=== PATIENT | female | born 1975 | race Caucasian/White ===

== ENCOUNTER 2017-08-28 15:38 | Emergency (ER) | payer OTHER ==
[~2017-08-28] VITALS: Ht 157.5 cm; Wt 94.1 kg
[~2017-08-28 15:38] MED LIST: FLEXERIL10 MG PO; NAPROSYN500 MG PO
[2017-08-28 16:12] LABS: HEMATOCRIT 38.8 % (36.0-46.0); MCH 28.4 PG (29.0-34.0); MCHC 33.2 G/DL (30.0-36.0); MCV 85.3 FL (83-99); MEAN PLAT.VOLUME 9.4 uM^3 (9.5-12.4); PLATELET COUNT 210 K/uL (156-360); RBC DIS.WIDTH-CV 12.5 % (11.8-14.6); RBC DIS.WIDTH-SD 38.8 % (39-53); RED BLOOD COUNT 4.55 M/uL (3.80-5.20); WHITE BLOOD COUNT 7.5 K/uL (4.1-10.2)
[2017-08-28 16:21] LABS: CHLORIDE 105 mEq/L (99-109); POTASSIUM 4.6 mEq/L (3.7-5.4); SODIUM 139 mEq/L (136-147)
[2017-08-28 16:24] LABS: GLUCOSE 96 mg/dL (70-99)
[2017-08-28 16:25] LABS: ANION GAP 10 MEQ/L (2-14)
[2017-08-28 16:26] LABS: TOTAL BILIRUBIN 0.3 mg/dL (0.0-1.0)
[2017-08-28 16:27] LABS: ALKALINE PHOSPHATASE 66 IU/L (3-129); GFR ESTIMATE (CALCULATED) > 59 mL/min/
[2017-08-28 16:28] LABS: UREA NITROGEN (BUN) 9 mg/dL (9-23)
[2017-08-28 16:33] LABS: ADD MIUA? YES; BILIRUBIN NEGATIVE; BLOOD SMALL; COLOR YELLOW ((YELLOW)); GLUCOSE (STRIP) NEGATIVE; KETONES NEGATIVE; LEUKOCYTES NEGATIVE; NITRITE NEGATIVE; PROTEIN (STRIP) NEGATIVE; SPECIFIC GRAVITY 1.012 (1.000-1.030); UROBILINOGEN 0.2 MG/DL (0.2-1.0)
[2017-08-28 16:36] LABS: QUANTITATIVE HCG < 4.0 MIU/ML
[2017-08-28 16:36] LABS: BACTERIA NONE SEEN /HPF; EPITHELIAL CELLS RARE /HPF; MUCUS TRACE /LPF; RED BLOOD CELLS 0-5 /HPF (0-5); UCUL ADDED? NO; WHITE BLOOD CELLS 0-5 /HPF (0-5)
[2017-08-28] MEDS ORDERED: NORCO 5/3251 TABLET PO (20:22)
[2017-08-28] MEDS ORDERED: MOTRIN600 MG PO (20:22)
[2017-08-28 20:58] VITALS: BP 145/65
== END 2017-08-28 20:59 | disposition home or self-care (01) ==
LOC: EME 15:38
PROVIDERS: Physician Assistant
DX: N83.209 Unspecified ovarian cyst, unspecified side (principal); D25.9 Leiomyoma of uterus, unspecified; Z86.718 Personal history of other venous thrombosis and embolism
CPT/HCPCS: 74176; 76856; 80053; 81003; 84702; 85027; 99281; 99284

== ENCOUNTER 2017-10-04 10:00 | Inpatient (IN) | payer OTHER ==
[~2017-10-04] VITALS: Ht 162.6 cm; Wt 95.3 kg
[~2017-10-04 10:00] MED LIST changes: +ELIQUIS5 MG PO; +LORCET 5-325 M1 EACH PO; +MOTRIN600 MG PO; +NORCO 5/3251 TABLET PO; +ONE DAILY FOR1 EAC1 PO; +PRILOSEC10 MG PO
[2017-10-04 10:23] VITALS: BP 132/62
[2017-10-04 14:54] LABS: INTER. NORMALIZED RATIO 1.2; PROTHROMBIN TIME 13.5 SEC (10.2-12.9)
[2017-10-04 14:57] LABS: PTT 40.1 SEC (25-37)
[2017-10-04] MEDS ORDERED: MOTRIN600 MG PO (18:56)
[2017-10-04] MEDS ORDERED: ENDOCET 5-3251 EACH PO (18:56)
[2017-10-04 19:34] LABS: HEMATOCRIT 31.4 % (36.0-46.0); MCV 86.5 FL (83-99)
[2017-10-04 20:14] VITALS: BP 117/61
[2017-10-04 23:35] VITALS: BP 112/59
[2017-10-05 03:28] VITALS: BP 136/63
[2017-10-05 06:35] LABS: EOSINOPHIL (%) 0.1 % (0-5); HEMATOCRIT 28.2 % (36.0-46.0); IMMATURE GRANULOCYTE (%) 0.4 % (0.0-0.7); INSTRUMENT ABS NEUTROPHIL CT 8.1 K/uL; MCH 28.3 PG (29.0-34.0); MCHC 32.6 G/DL (30.0-36.0); MCV 86.8 FL (83-99); MEAN PLAT.VOLUME 10.2 uM^3 (9.5-12.4); MONOCYTE (%) 8.3 % (3-12); MONOCYTE COUNT 0.9 K/uL (0-0.8); NEUTROPHIL (%) 73.3 % (45-76); NEUTROPHIL COUNT 8.1 K/uL (1.8-6.4); PLATELET COUNT 217 K/uL (156-360); RBC DIS.WIDTH-CV 12.7 % (11.8-14.6); RBC DIS.WIDTH-SD 40.5 % (39-53)
[2017-10-05 06:43] LABS: RED BLOOD COUNT 3.25 M/uL (3.80-5.20)
[2017-10-05 06:59] LABS: ANION GAP 6 MEQ/L (2-14); CHLORIDE 108 MEQ/L (99-109); GFR ESTIMATE (CALCULATED) > 59 mL/min/; GLUCOSE 98 mg/dL (70-99); POTASSIUM 4.4 MEQ/L (3.7-5.4); SAMPLE HEMOLYSIS CHECK 0; SAMPLE ICTERIC CHECK 0; SAMPLE LIPEMIA CHECK 0; SODIUM 138 MEQ/L (136-147); UREA NITROGEN (BUN) 9 mg/dL (9-23)
[2017-10-05 07:20] VITALS: BP 122/57
[2017-10-05 11:00] VITALS: BP 120/56
[2017-10-05 15:15] VITALS: BP 143/60
[2017-10-05 19:42] VITALS: BP 109/63
[2017-10-06 00:27] VITALS: BP 135/67
[2017-10-06 03:44] VITALS: BP 110/52
[2017-10-06 07:48] VITALS: BP 112/58
[2017-10-06 09:12] LABS: EOSINOPHIL (%) 0.5 % (0-5); HEMATOCRIT 26.2 % (36.0-46.0); IMMATURE GRANULOCYTE (%) 0.3 % (0.0-0.7); INSTRUMENT ABS NEUTROPHIL CT 4.9 K/uL; LYMPHOCYTE COUNT 1.6 K/uL (1.0-2.8); MCH 28.6 PG (29.0-34.0); MCHC 32.4 G/DL (30.0-36.0); MCV 88.2 FL (83-99); MEAN PLAT.VOLUME 9.8 uM^3 (9.5-12.4); MONOCYTE (%) 10.2 % (3-12); MONOCYTE COUNT 0.8 K/uL (0-0.8); NEUTROPHIL (%) 66.8 % (45-76); NEUTROPHIL COUNT 4.9 K/uL (1.8-6.4); PLATELET COUNT 184 K/uL (156-360); RBC DIS.WIDTH-SD 41.6 % (39-53); RED BLOOD COUNT 2.97 M/uL (3.80-5.20); WHITE BLOOD COUNT 7.3 K/uL (4.1-10.2)
[2017-10-06 09:33] LABS: ALKALINE PHOSPHATASE 41 IU/L (3-129); ANION GAP 5 MEQ/L (2-14); CHLORIDE 107 MEQ/L (99-109); GFR ESTIMATE (CALCULATED) > 59 mL/min/; GLUCOSE 96 mg/dL (70-99); POTASSIUM 3.8 MEQ/L (3.7-5.4); SAMPLE HEMOLYSIS CHECK 0; SAMPLE ICTERIC CHECK 0; SAMPLE LIPEMIA CHECK 0; SODIUM 139 MEQ/L (136-147); TOTAL BILIRUBIN 0.4 MG/DL (0.0-1.0); UREA NITROGEN (BUN) 7 mg/dL (9-23)
[2017-10-06] MEDS ORDERED: DOXYCYCLINE HY100 M3 PO (12:16)
[2017-10-06 12:35] VITALS: BP 115/55
== END 2017-10-06 15:06 | disposition home or self-care (01) | DRG 742 ==
LOC: SDC 10:00 → ENRESERV 17:23 → 2SOUTH 17:34 → 2EAST 17:34 → SDC 17:35 → ENRESERV 18:03 → 2EAST 20:07
PROVIDERS: Obstetrics & Gynecology; Obstetrics & Gynecology Gynecology
PROC: 0TN60ZZ Release Right Ureter, Open Approach (ICD-10-PCS; principal; 2017-10-04)
PROC: 0DQN0ZZ Repair Sigmoid Colon, Open Approach (ICD-10-PCS; principal; 2017-10-04)
PROC: 0DTJ0ZZ Resection of Appendix, Open Approach (ICD-10-PCS; principal; 2017-10-04)
PROC: 0UT70ZZ Resection of Bilateral Fallopian Tubes, Open Approach (ICD-10-PCS; principal; 2017-10-04)
PROC: 0UT90ZL Resection of Uterus, Supracervical, Open Approach (ICD-10-PCS; principal; 2017-10-04)
PROC: 0TN70ZZ Release Left Ureter, Open Approach (ICD-10-PCS; principal; 2017-10-04)
PROC: 0TJB8ZZ Inspection of Bladder, Via Natural or Artificial Opening Endoscopic (ICD-10-PCS; principal; 2017-10-04)
PROC: 0WJJ4ZZ Inspection of Pelvic Cavity, Percutaneous Endoscopic Approach (ICD-10-PCS; principal; 2017-10-04)
PROC: 0UT20ZZ Resection of Bilateral Ovaries, Open Approach (ICD-10-PCS; principal; 2017-10-04)
DX: N80.3 Endometriosis of pelvic peritoneum (principal); N73.6 Female pelvic peritoneal adhesions (postinfective); Z53.31 Laparoscopic surgical procedure converted to open procedure; N80.1 Endometriosis of ovary; N70.11 Chronic salpingitis; K91.72 Accidental puncture and laceration of a digestive system organ or structure during other procedure; Y83.6 Removal of other organ (partial) (total) as the cause of abnormal reaction of the patient, or of later complication, without mention of misadventure at the time of the procedure; R50.82 Postprocedural fever; N94.6 Dysmenorrhea, unspecified; D25.9 Leiomyoma of uterus, unspecified; K21.9 Gastro-esophageal reflux disease without esophagitis; Z86.718 Personal history of other venous thrombosis and embolism; Z86.73 Personal history of transient ischemic attack (TIA), and cerebral infarction without residual deficits; Z79.01 Long term (current) use of anticoagulants
CPT/HCPCS: 36415; 71010; 80048; 80053; 81240 90; 83090 90; 84702 GA; 85014; 85018; 85025; 85240 90; 85300 90; 85303 90; 85305 90; 85306 90; 85610; 85613 90; 85670 90; 85730; 85730 90; 86146 90; 86147 90; 86850; 86900; 86901; 86920; 87040; 88302; 88307; J0330; J0690; J1100; J1170; J1650; J2175; J2250; J2405; J2710; J3010; J7120; Q0175

== ENCOUNTER 2018-01-08 11:18 | Emergency (ER) | payer OTHER ==
[~2018-01-08] VITALS: Ht 160 cm; Wt 96.9 kg
[~2018-01-08 11:18] MED LIST changes: +DOXYCYCLINE HY100 M3 PO; +ENDOCET 5-3251 EACH PO
[2018-01-08 14:23] LABS: HEMATOCRIT 33.1 % (36.0-46.0); MCH 26.6 PG (29.0-34.0); MCHC 33.2 G/DL (30.0-36.0); MCV 80.1 FL (83-99); PLATELET COUNT 146 K/uL (156-360); RBC DIS.WIDTH-CV 13.1 % (11.8-14.6); RBC DIS.WIDTH-SD 37.2 % (39-53); RED BLOOD COUNT 4.13 M/uL (3.80-5.20); WHITE BLOOD COUNT 8.4 K/uL (4.1-10.2)
[2018-01-08 14:29] LABS: INTER. NORMALIZED RATIO 1.2
[2018-01-08 14:32] LABS: PTT 43.8 SEC (25-37)
[2018-01-08] MEDS ORDERED: LEXAPRO5 MG PO (15:49)
[2018-01-08 15:57] VITALS: BP 150/85
== END 2018-01-08 16:29 | disposition short-term general hospital (02) ==
LOC: EME 11:18
PROVIDERS: Family Medicine
DX: I82.421 Acute embolism and thrombosis of right iliac vein (principal); I82.431 Acute embolism and thrombosis of right popliteal vein; G40.909 Epilepsy, unspecified, not intractable, without status epilepticus; Z86.718 Personal history of other venous thrombosis and embolism
CPT/HCPCS: 85027; 85610; 85730; 93971; 99281; 99285